=== PATIENT | male | born 1945 | race Caucasian/White ===

== ENCOUNTER → 2023-11-14 09:24 | Outpatient (REF) | payer MEDICARE, OTHER, SELFPAY | LOC: RCS 09:24 | PROVIDERS: ATTENDING PHYSICIAN Internal Medicine Cardiovascular Disease; FAMILY PHYSICIAN Family Medicine | DX: R55 Syncope and collapse (principal) | CPT/HCPCS: 93306 ==

== ENCOUNTER 2024-10-06 10:09 | Emergency (ER) | payer MEDICARE, OTHER, SELFPAY ==
[2024-10-06] VITALS (9 sets, daily range): BP systolic 121–161; BP diastolic 63–85; PULSE 54–65; BMI 22.8
[2024-10-06 11:05] LABS: % Basophils 0.9 % (0-2); % Eosinophils 2.7 % (0-6); % Immature Granulocytes 0.2 % (0-0.5); % Lymphocytes 23.8 % (20.5-51.1); % Monocytes 10.2 % (1.7-9.3); % Neutrophils 62.2 % (42.2-75.2); Absolute Basophils 0.1 10^3/uL (0-0.2); Absolute Eosinophils 0.2 10^3/uL (0-0.7); Absolute Lymphocytes 1.3 10^3/uL (1.2-3.4); Absolute Monocytes 0.6 10^3/uL (0.1-0.6); Absolute Neutrophils 3.4 10^3/uL (1.4-6.5); Hematocrit 43.4 % (39.0-52.0); Hemoglobin 14.9 g/dL (13.0-18.0); Mean Corp Hgb Conc. 34.3 g/dL (33.0-37.0); Mean Corpuscular Hgb 32.4 pg (27.0-31.0); Mean Corpuscular Volume 94.3 fL (80.0-94.0); Mean Platelet Volume 9.5 fL (7.4-10.4); Nucleated Red Blood Cells % 0 % (-); Platelet Count 217 10^3/uL (130-400); Red Cell Dist. Width 12.8 % (11.5-14.5); White Blood Cell Count 5.5 10^3/uL (4.8-10.8)
[2024-10-06 11:20] LABS: ALT (SGPT) 22 U/L (0-50); AST (SGOT) 22 U/L (17-59); Albumin 4.4 g/dl (3.5-5.0); Alkaline Phosphatase 66 U/L (38-126); Blood Urea Nitrogen 13 mg/dl (9-20); Calcium 9.1 mg/dl (8.4-10.2); Carbon Dioxide 29 mmol/L (22-30); Chloride 100 mmol/L (98-107); Glucose 119 mg/dl (70-99); Potassium 4.4 mmol/L (3.5-5.1); Sodium 135 mmol/L (135-145); Total Bilirubin 0.5 mg/dl (0.2-1.3); Total Protein 7.1 g/dl (6.3-8.2); eGFR > 60.00
[2024-10-06 11:26] LABS: Troponin I < 0.012 ng/ml
--- NOTE | 2024-10-06 14:20 | ED.GENMED ---
History of Present Illness
<Dede Ruiz PA-C - Last Filed: 10/10/24 19:35>
General
Chief Complaint: Heart Rate Problem
Source: patient
Exam Limitations: none
Time Seen by Provider: 10/06/24 13:44
History of Present Illness
History of Present Illness:
79-year-old male with a history of paroxysmal A-fib on Xarelto, metoprolol every other day
Presents for feeling lightheaded irregular heartbeat, fatigue, chills, headache and abdominal pain. Patient says he woke up feeling well and a few hours ago started suddenly feeling this way. He said he got a pain in his abdomen and felt a mild
headache with lightheadedness and felt palpitations. He presumed he was in A-fib because he had a few episodes of this in the past. Patient had syncope x 2 in the past but did not pass out this time. His was able to help him to sit down so
he avoided passing out. Since being here for several hours he feels a little bit better, the belly pain has resolved and he just has a mild headache. He says it all came on so fast and he felt like he had generalized body pain. He is not having a
fever, sore throat, cough, urinary symptoms, chest pain or shortness of breath
Past History
<Dede Ruiz PA-C - Last Filed: 10/10/24 19:35>
Past History
ED Past Medical History: Arrthythmia
Social History
Tobacco: Non-smoker
Alcohol: None
Drug: None
Personal:
Living: with family
Employment: Retired
Family History
Family History: Other (Noncontributory)
Review of Systems
<BOOKER Marquez Last Filed: 10/10/24 19:35>
Review of Systems
Allergies reviewed?: Yes
All Other Systems: Not applicable
Phy Exam
<Dede Ruiz PA-C - Last Filed: 10/10/24 19:35>
Physical Exam
Physical Exam:
GENERAL: Alert , in no apparent distress, looks a little wiped out
EYE: pupils equal and reactive
NECK: Supple
ENT: o/p clr, mmm.
CARDIAC: bradycardic 50s irregiuarly irregular, no obvious murmur
no edema
LUNGS: Clear breath sounds bilaterally, no acute respiratory distress, no wheezes/rales/rhonchi
ABDOMEN: Soft, without focal tenderness, no r/g, no cvat, normal bowel sounds
NEUROLOGICAL: Alert and oriented, no focal neuro deficits
SKIN: Warm and dry, skin intact.
MUSCULOSKELETAL: No edema, well perfused. neg roger's sign
PSYCH: Normal and appropriate interaction.
Course
<Dede Ruiz PA-C - Last Filed: 10/10/24 19:35>
Orders/Labs/Results
Orders:
Orders
10/06/24 10:46
Electrocardiogram (*1) Urgent
Reason for Study: Atrial Fibrillation
EKG- Treatment ONCE
10/06/24 10:56
Complete Blood Count/With Diff Urgent
Comprehensive Metabolic Panel Urgent
Troponin I Urgent
10/06/24 14:00
EKG [Electrocardiogram (*1)] Urgent
Reason for Study: Other
Other Reason for Exam: PACs
10/06/24 14:01
EKG- Treatment ONCE
10/06/24 14:20
COVID-19 Antigen Urgent
Source: Nasal Swab
Influenza A+B Rapid Molecular Urgent
TOSHIA Source: Nasal Swab
Specimen Description:
10/06/24 14:24
Orthostatic VS- Treatment ONCE
Abnormal Lab Results
10/06/24
10:56
RBC 4.60 L 10^6/uL
(4.70-6.10)
MCV 94.3 H fL
(80.0-94.0)
MCH 32.4 H pg
(27.0-31.0)
Monocytes % 10.2 H %
(1.7-9.3)
Glucose 119 H mg/dl
(70-99)
10/06/24 10:56
10/06/24 10:56
Vital Signs
Initial and Last Documented VS:
Initial Vital Signs
Temp Pulse Resp BP Pulse Ox
36.5 C 56 18 161/74 100
10/06/24 10:44 10/06/24 10:44 10/06/24 10:44 10/06/24 10:44 10/06/24 10:44
Last Documented Vital Signs
Temp Pulse Resp BP Pulse Ox
36.5 C 56 12 121/63 98
10/06/24 10:44 10/06/24 15:35 10/06/24 15:35 10/06/24 15:35 10/06/24 15:35
<Curtis Morgan MD - Last Filed: 10/06/24 15:16>
Orders/Labs/Results
Orders:
Orders
10/06/24 10:46
Electrocardiogram (*1) Urgent
Reason for Study: Atrial Fibrillation
EKG- Treatment ONCE
10/06/24 10:56
Complete Blood Count/With Diff Urgent
Comprehensive Metabolic Panel Urgent
Troponin I Urgent
10/06/24 14:00
EKG [Electrocardiogram (*1)] Urgent
Reason for Study: Other
Other Reason for Exam: PACs
10/06/24 14:01
EKG- Treatment ONCE
10/06/24 14:20
COVID-19 Antigen Urgent
Source: Nasal Swab
Influenza A+B Rapid Molecular Urgent
TOSHIA Source: Nasal Swab
Specimen Description:
10/06/24 14:24
Orthostatic VS- Treatment ONCE
Abnormal Lab Results
10/06/24
10:56
RBC 4.60 L 10^6/uL
(4.70-6.10)
MCV 94.3 H fL
(80.0-94.0)
MCH 32.4 H pg
(27.0-31.0)
Monocytes % 10.2 H %
(1.7-9.3)
Glucose 119 H mg/dl
(70-99)
10/06/24 10:56
10/06/24 10:56
Vital Signs
Initial and Last Documented VS:
Initial Vital Signs
Temp Pulse Resp BP Pulse Ox
36.5 C 56 18 161/74 100
10/06/24 10:44 10/06/24 10:44 10/06/24 10:44 10/06/24 10:44 10/06/24 10:44
Last Documented Vital Signs
Temp Pulse Resp BP Pulse Ox
36.5 C 56 12 121/63 98
10/06/24 10:44 10/06/24 15:35 10/06/24 15:35 10/06/24 15:35 10/06/24 15:35
<Dede Ruiz PA-C - Last Filed: 10/10/24 19:35>
MDM/Problems Addressed
Differential Diagnosis Includes:
afib, sinus arrhythmia, pacs, near syncope
MDM/Problems Addressed:
79 y/o M
h/o PAF
on xarelto, metoprolol
says he felt like he was in afib earlier after feeling woozy and foggy and lightheaded
his symptoms are ipmroved here
HR is normally in teh50s
he is in sinus here
not hypotensive
well appearing
also felt like he had the chills at the time, so w/u for covid/flu but they were neg
seen by ed attending
felt that despite him having frequent pacs while here, and some sinus arrhythmia, that it wa probably episode of afib
regardless, pt is not in afib now and ifeels better
dc home
<Dede Ruiz PA-C - Last Filed: 10/10/24 19:35>
*Critical Care Note
Total Time (30-74mins, 75-104mins- exclusive of procedures): Not Applicable
ED Attending Note
<Dede Ruiz PA-C - Last Filed: 10/10/24 19:35>
-
Portions of this chart may have been created with voice recognition software.� Occasional wrong word or��sound alike� substitutions may have occurred due to the inherent limitations of voice recognition software.
<Curtis Morgan MD - Last Filed: 10/06/24 15:16>
ED Attending Note
Patient seen and examined by attending physician: Yes
ED Attending Note:
I have seen and evaluated the patient with a [id number] encounter. I have spoken to the advance practicer provider and involved in the medical history, the physical exam, medical decision making.
Evaluation and management service: agree unless noted differently below.
Results interpretation: agree unless noted differently below.
Focused HPI: 79-year-old male with a past medical history of A-fib on Xarelto (follows with Dr. Mak for cardiology) presents to the ER for evaluation after an episode of dizziness since weakness. Patient reports that this morning he was at
rest and suddenly felt very lightheaded, headache, dizzy and foggy and generally weak. He says that the feeling was not passing and he thought he might pass out and so he came to the ER. Shortly after arrival here he says symptoms resolved then by
the time my assessment he says he feels essentially back to normal. He says that he has had similar symptoms when he was in atrial fibrillation in the past. He is on Xarelto and compliant. Takes metoprolol and compliant.
Physical exam: Awake alert no distress. Hypertensive in triage normalized by my assessment. Sinus bradycardia on the monitor. Rest of vitals normal. He has no cardiac rubs gallops or murmurs. Lungs clear to auscultation bilaterally. No edema
in the extremities, extremities are warm and well-perfused.
Medical Decision Makin-year-old male presents for evaluation after an episode of dizziness and weakness similar to prior episodes of A-fib. Symptoms have resolved. Labs sent off here were unremarkable. Troponin undetectable. EKG shows sinus
rhythm. Suspect likely transient episode of A-fib. Stable for discharge, follow-up with cardiology as an outpatient. Patient very comfortable with this plan. All questions answered.
Discharge Plan
Departure
Patient Disposition: Home (Routine Discharge)
Date of Disposition: 10/06/24
Time of Disposition: 15:20
Patient with high blood pressure during this ER visit?: No
Condition: Fair
Covid-19: Negative COVID-19
Discharge Problem:
AF (paroxysmal atrial fibrillation), PAC (premature atrial contraction)
Prescriptions:
No Action
fluticasone propionate 1 SPRAY spray,suspension
1 spray intranasal DAILYPRN PRN (Reason: allergies)
finasteride 5 MG tablet
5 mg PO DAILY
silodosin 8 MG capsule
8 mg PO DAILY
metoprolol succinate 12.5 MG tablet extended release 24 hr
12.5 mg PO DAILY Qty: 30 5RF
rivaroxaban [Xarelto] 20 MG tablet
20 mg PO QPM Qty: 30 5RF
Referrals:
Ace Mak MD [Active] - Follow up in 5-7 days
Heath Dawson MD [Family Provider] - Follow up in 2-3 days
Activity Restrictions/Additional Instructions:
You had some irregular beats on the monitor but you were not in atrial fibrillation here. You may have had an episode of A-fib at home. Otherwise your testing was reassuring, you tested negative for flu and COVID. Your white count was normal.
Your heart enzyme was negative. Follow-up with Dr. Mak. Return for any concerns like repeated lightheadedness or passing out episodes, chest pain or shortness of breath etc.
Interventions
Interventions:
*Risk Screen - Suicide Last Done: 10/06/24 10:44
*General Assessment Last Done: 10/06/24 10:44
*Neglect/Abuse Screening Last Done: 10/06/24 13:53
ED- Fall Risk Assessment Last Done: 10/06/24 13:53
*ED COVID-19 Vaccine History Last Done: 10/06/24 10:44
*Nursing Disposition Last Done: 10/06/24 15:40
ED- Cardiac Assessment Last Done: 10/06/24 13:53
ED- Pulmonary Assessment Last Done: 10/06/24 13:53
Discharge Date and Time
Discharge Date/Time: 10/06/24 15:41
Print Language: RUSSIAN
[2024-10-06 14:57] LABS: COVID-19 Antigen Negative (Negative)
== END 2024-10-06 15:41 | disposition home or self-care (01) ==
LOC: EMR 10:09
PROVIDERS: Emergency Medicine; Physician Assistant; EMERGENCY PHYSICIAN Emergency Medicine; FAMILY PHYSICIAN Family Medicine
DX: I48.0 Paroxysmal atrial fibrillation (principal); I49.1 Atrial premature depolarization; Z79.01 Long term (current) use of anticoagulants
CPT/HCPCS: 99283; 80053; 84484; 85025; 87502; 87811; 93005

== ENCOUNTER → 2024-10-18 16:03 | Outpatient (REF) | payer MEDICARE, OTHER, SELFPAY | LOC: RCS 16:03 | PROVIDERS: ATTENDING PHYSICIAN Physician Assistant; FAMILY PHYSICIAN Family Medicine | DX: R55 Syncope and collapse (principal); I48.91 Unspecified atrial fibrillation; I34.0 Nonrheumatic mitral (valve) insufficiency | CPT/HCPCS: 93306 ==